=== PATIENT | female | born 1950 | race Caucasian/White ===

== ENCOUNTER 2022-01-29 10:04 | Emergency (ER) | payer MEDICARE ==
[2022-01-29] MEDS ORDERED: Acetaminophen 325 MG TAB ONE (10:27)
[2022-01-29] MEDS ORDERED: Boostrix 0.5 ML (Tdap) VIAL ONE (10:27)
[2022-01-29] MEDS ORDERED: Lidocaine 1% (PF) 30 ML VIAL ONE (10:27)
[2022-01-29] MEDS ORDERED: Cephalexin 250 MG CAP ONE (10:49)
[2022-01-29] MEDS ORDERED: Bacitracin 1 PK ONE (11:31)
== END 2022-01-29 11:40 | disposition home or self-care (01) ==
LOC: NAV ERS 10:04
DX: S62.631B Displaced fracture of distal phalanx of left index finger, initial encounter for open fracture (principal); I10 Essential (primary) hypertension; E03.9 Hypothyroidism, unspecified; W31.2XXA Contact with powered woodworking and forming machines, initial encounter; Y92.009 Unspecified place in unspecified non-institutional (private) residence as the place of occurrence of the external cause
CPT/HCPCS: 12001; 90715; J2001

== ENCOUNTER → 2022-11-04 | Emergency (ER) | payer OTHER, MEDICARE | LOC: NAV ERS 15:25 | DX: S70.12XA Contusion of left thigh, initial encounter (principal); E03.9 Hypothyroidism, unspecified; I10 Essential (primary) hypertension; W54.1XXA Struck by dog, initial encounter | CPT/HCPCS: 72170 ==

== ENCOUNTER 2023-06-21 09:43 | Emergency (ER) | payer OTHER, MEDICARE ==
[2023-06-21 10:22] LABS: #Neutrophils 5.3 thou/uL (1.40-6.50); %Basophils 0.7 % (0.0-1.0); %Eosinophils 1.9 % (0.0-10.0); %Lymphocytes 15.1 % (21.0-51.0); %Monocytes 3.1 % (0.0-10.0); %Neutrophils 79.1 % (42.0-75.0); Hematocrit 38.5 % (36.0-47.0); Manual Diff?? NO; Mean Corpuscular HGB CONC 33.7 g/dL (32.0-36.0); Mean Corpuscular Hemoglobin 34.3 pg (27.0-31.0); Mean Platelet Volume 7.6 fL (7.4-10.4); Platelet Count 203 10x3/uL (130-400); RBC Distribution Width 11.5 % (11.5-14.5); Red Blood Cell (RBC) Count 3.78 mill/uL (4.20-5.40); White Blood Cell (WBC) Count 6.7 10x3/uL (4.8-10.8)
[2023-06-21 10:23] LABS: #Eosinphils 0.1 thou/uL (0.0-0.7); #Monocytes 0.2 thou/uL (0.11-0.59)
[2023-06-21 10:27] LABS: INR-International Normal Ratio 0.9; Prothrombin Time 12.7 sec (12.0-14.7)
[2023-06-21 10:37] LABS: ALT (SGPT) 13 U/L (8-55); AST (SGOT) 18 U/L (5-34); Alkaline Phosphatase 73 U/L (40-110); Anion Gap 14 mmol/L (10-20); BUN (Urea Nitrogen) 14 mg/dL (9.8-20.1); Bilirubin, Total 0.7 mg/dL (0.2-1.2); CK (CPK) 75 U/L (29-168); Calc. Creatinine Clearance 0 mL/min (70-130); Carbon Dioxide 27 mmol/L (23-31); Chloride 107 mmol/L (98-107); Estimated GFR 41; Globulin 1.7 g/dL (2.4-3.5); Glucose 94 mg/dL (83-110); Lipase 33 U/L (8-78); Magnesium 1.9 mg/dL (1.6-2.6); Potassium 2.7 mmol/L (3.5-5.1); Protein, Total 5.7 g/dL (5.8-8.1); Sodium 145 mmol/L (136-145)
[2023-06-21 10:38] LABS: Troponin I Less than 0.010 ng/mL (< 0.028)
[2023-06-21 10:40] LABS: PTT 22.6 sec (22.9-36.1)
[2023-06-21] MEDS ORDERED: Lidocaine 1% (PF) 30 ML VIAL ONE (10:54)
[2023-06-21 11:02] LABS: Bilirubin Moderate (Negative); Blood, Urine Negative (Negative); Clarity Clear (Clear); Glucose, Urine (Dipstick) Negative (Negative); Ketone, Urine Trace mg/dL (Negative); Leukocyte Negative (Negative); Nitrite Negative (Negative); Protein, Urine (Dipstick) > or equal to 300 mg/dL (Neg-Trace)
[2023-06-21 11:03] LABS: Specific Gravity, Urine 1.028 (1.002-1.036)
[2023-06-21 11:04] LABS: Bacteria/HPF 1+ HPF (None Seen); CAUTI Indications for Culture Alt mental st,lethar; Mucous/LPF 2+ LPF (<2+); Urine Culture Reflex No No; WBC/HPF 0-3 HPF (0-3)
[2023-06-21] MEDS ORDERED: Potassium Chloride 20 MEQ TAB ONE (11:05)
[2023-06-21 11:06] LABS: Cocaine Metabolite Screen Not Detected (NotDetected); Methamphetamine Not Detected (NotDetected); Opiate Screen Not Detected (NotDetected); Phencyclidine (PCP) Not Detected (NotDetected); THC/Cannabinoid Screen Not Detected (NotDetected)
[2023-06-21 11:07] LABS: Amphetamine Not Detected (NotDetected); Barbiturates Screen Not Detected (NotDetected); Benzodiazepine Screen Detected (NotDetected); Methadone Not Detected (NotDetected); Oxycodone Screen Not Detected (NotDetected); Tricyclic Screen Detected (NotDetected)
== END 2023-06-21 11:38 | disposition left against medical advice (07) ==
LOC: NAV ERS 09:43
DX: S62.615A Displaced fracture of proximal phalanx of left ring finger, initial encounter for closed fracture (principal); E87.6 Hypokalemia; R55 Syncope and collapse; R42 Dizziness and giddiness; I10 Essential (primary) hypertension; E03.9 Hypothyroidism, unspecified; W18.30XA Fall on same level, unspecified, initial encounter
CPT/HCPCS: 70450; 80053; 80306; 81001; 82550; 83690; 83735; 84443; 84484; 85025; 85610; 85730; 93005; J2001

== ENCOUNTER 2023-07-03 11:44 | Emergency (ER) | payer MEDICARE, OTHER ==
[2023-07-03 12:01] LABS: Bilirubin Negative (Negative); Blood, Urine Trace (Negative); Clarity Hazy (Clear); Glucose, Urine (Dipstick) Negative (Negative); Ketone, Urine Trace mg/dL (Negative); Leukocyte Trace (Negative); Nitrite Negative (Negative); Protein, Urine (Dipstick) 100 mg/dL (Neg-Trace); Specific Gravity, Urine 1.025 (1.005-1.030); Urobilinogen 0.2 mg/dL (Less than 2)
[2023-07-03 12:10] LABS: Bacteria/HPF Rare-Few HPF (None Seen); CAUTI Indications for Culture Dysuria,urgency,freq; RBC/HPF 0-3 HPF (0-3); Squamous Epithelial 0-3 HPF (0-3)
[2023-07-03 12:13] LABS: Urine Culture Reflex No No
[2023-07-03] MEDS ORDERED: Sodium Chloride 0.9% 100 ML ONE (12:15)
[2023-07-03] MEDS ORDERED: cefTRIAXone (ROCEPHIN) 1 GM VIAL ONE (12:15)
[2023-07-03] MEDS ORDERED: Sodium Chloride 0.9% 2,000 ML ONE (12:15)
[2023-07-03 12:18] LABS: #Lymphocytes 1.2 thou/uL (1.20-3.40); #Monocytes 0.2 thou/uL (0.11-0.59); #Neutrophils 7.8 thou/uL (1.40-6.50); %Basophils 0.5 % (0.0-1.0); %Eosinophils 0.2 % (0.0-10.0); %Lymphocytes 12.8 % (21.0-51.0); %Monocytes 2.6 % (0.0-10.0); Hematocrit 41.5 % (36.0-47.0); Hemoglobin 13.9 g/dL (12.0-16.0); Mean Corpuscular HGB CONC 33.5 g/dL (32.0-36.0); Mean Corpuscular Hemoglobin 34.5 pg (27.0-31.0); Mean Platelet Volume 7.5 fL (7.4-10.4); Platelet Count 222 10x3/uL (130-400); Red Blood Cell (RBC) Count 4.03 mill/uL (4.20-5.40); White Blood Cell (WBC) Count 9.3 10x3/uL (4.8-10.8)
[2023-07-03 12:30] LABS: Bilirubin, Total 0.7 mg/dL (0.2-1.2); Calcium 11.1 mg/dL (7.8-10.44); Chloride 112 mmol/L (98-107); Potassium 3.8 mmol/L (3.5-5.1); Sodium 143 mmol/L (136-145)
[2023-07-03 12:43] LABS: ALT (SGPT) 20 U/L (8-55); AST (SGOT) 19 U/L (5-34); Albumin 4.4 g/dL (3.4-4.8); Alkaline Phosphatase 90 U/L (40-110); BUN (Urea Nitrogen) 9 mg/dL (9.8-20.1); Calc. Creatinine Clearance 0 mL/min (70-130); Carbon Dioxide 18 mmol/L (23-31); Estimated GFR 45; Glucose 144 mg/dL (83-110); Protein, Total 6.4 g/dL (5.8-8.1)
[2023-07-03 12:44] LABS: Anion Gap 17 mmol/L (10-20)
== END 2023-07-03 13:31 | disposition home or self-care (01) ==
LOC: NAV ERS 11:44
DX: F32.9 Major depressive disorder, single episode, unspecified (principal); E83.52 Hypercalcemia; I10 Essential (primary) hypertension
CPT/HCPCS: 80053; 81001; 82140; 83605; 84443; 85025; 87040; 93005; 96361; 96365; J0696; J3490; J7050

== ENCOUNTER 2025-01-01 10:51 | Emergency (ER) | payer OTHER ==
[~2025-01-01 10:51] MED LIST: Iopamidol 370 76% 100 ML VIAL ONE
[2025-01-01] MEDS ORDERED: Acetaminophen 500 MG TAB ONE (11:18)
[2025-01-01] MEDS ORDERED: Sodium Chloride 0.9% 1,000 ML ONE (11:18)
[2025-01-01 11:27] LABS: #Eosinophils 0.1 thou/uL (0.0-0.7); #Lymphocytes 0.9 thou/uL (1.20-3.40); #Monocytes 0.2 thou/uL (0.11-0.59); #Neutrophils 4.1 thou/uL (1.40-6.50); %Basophils 0.8 % (0.0-1.0); %Eosinophils 2.4 % (0.0-10.0); %Lymphocytes 17.2 % (21.0-51.0); %Monocytes 4.4 % (0.0-10.0); %Neutrophils 75.3 % (42.0-75.0); Hematocrit 40.7 % (36.0-47.0); Hemoglobin 13.2 g/dL (12.0-16.0); Mean Corpuscular HGB CONC 32.4 g/dL (32.0-36.0); Mean Corpuscular Hemoglobin 31.9 pg (27.0-31.0); Mean Corpuscular Volume 98.5 fl (78.0-98.0); Mean Platelet Volume 7.1 fL (7.4-10.4); Platelet Count 171 10x3/uL (130-400); RBC Distribution Width 11.4 % (11.5-14.5); Red Blood Cell (RBC) Count 4.13 mill/uL (4.20-5.40); White Blood Cell (WBC) Count 5.4 10x3/uL (4.8-10.8)
[2025-01-01 11:34] LABS: Prothrombin Time 13.1 sec (12.0-14.7)
[2025-01-01 11:39] LABS: ALT (SGPT) 12 U/L (Less than 34); AST (SGOT) 21 U/L (11-34); Alkaline Phosphatase 79 U/L (40-110); Anion Gap 13 mmol/L (10-20); BUN (Urea Nitrogen) 9 mg/dL (9.8-20.1); Bilirubin, Total 0.6 mg/dL (0.3-1.2); Calc. Creatinine Clearance 0 mL/min (70-130); Calcium 10.4 mg/dL (7.8-10.44); Carbon Dioxide 22 mmol/L (23-31); Chloride 110 mmol/L (98-107); Estimated GFR 77; Globulin 2.3 g/dL (2.4-3.5); Glucose 107 mg/dL (83-110); Potassium 3.7 mmol/L (3.5-5.1); Protein, Total 6.3 g/dL (5.8-8.1); Sodium 141 mmol/L (136-145)
[2025-01-01] MEDS ORDERED: Ondansetron PF 4 MG/2 ML Vial ONE (11:57)
[2025-01-01 12:32] LABS: Bilirubin Small (Negative); Blood, Urine Trace (Negative); Clarity Slightly Cloudy (Clear); Glucose, Urine (Dipstick) Negative (Negative); Ketone, Urine Negative (Negative); Leukocyte Small (Negative); Nitrite Positive (Negative); Protein, Urine (Dipstick) Trace mg/dL (Neg-Trace); Specific Gravity, Urine 1.015 (1.005-1.030)
[2025-01-01 12:47] LABS: Bacteria/HPF 4+ HPF (None Seen); CAUTI Indications for Culture Pelvic or flank pain; RBC/HPF 0-3 HPF (0-3); Squamous Epithelial 0-3 HPF (0-3); WBC/HPF 21-50 HPF (0-3)
[2025-01-01 12:48] LABS: Urine Culture Reflex Yes Yes
[2025-01-01] MEDS ORDERED: cefTRIAXone (ROCEPHIN) 1 GM VIAL ONE (12:52)
[2025-01-01] MEDS ORDERED: Sodium Chloride 0.9% 100 ML ONE (12:53)
== END 2025-01-01 13:40 | disposition home or self-care (01) ==
LOC: NAV ERS 10:51
DX: S20.212A Contusion of left front wall of thorax, initial encounter (principal); S00.83XA Contusion of other part of head, initial encounter; S80.10XA Contusion of unspecified lower leg, initial encounter; R14.0 Abdominal distension (gaseous); N39.0 Urinary tract infection, site not specified; R29.6 Repeated falls; I10 Essential (primary) hypertension; E03.9 Hypothyroidism, unspecified; E78.00 Pure hypercholesterolemia, unspecified; Z79.899 Other long term (current) drug therapy; W06.XXXA Fall from bed, initial encounter
CPT/HCPCS: 71101; 74177; 80053; 81001; 82962; 85025; 85610; 85730; 87086; 93005; J0696; J2405; J7030; 36416; 96365; 96375; Q9967